=== PATIENT | female | born 1975 | race Caucasian/White ===

== ENCOUNTER → 2018-12-22 09:27 | Outpatient (CLI) | payer OTHER, SELFPAY ==
--- NOTE | 2018-12-22 | DI.US.S_ITS ---
PROCEDURE: US PELVIC COMPLETE INDICATIONS: HISTORY OF PCOS TECHNIQUE: Real-time scanning was performed of the pelvic organs, with image documentation. Additional endovaginal scanning was necessary due to incomplete visualization of the adnexal and endometrial structures by transabdominal scanning. COMPARISON: None. FINDINGS: Transabdominal scanning: Limited scanning through the kidneys shows no hydronephrosis. No pathologic free abdominal or pelvic fluid. Endovaginal scanning: Uterus: Uterus is normal in size at 8.5 x 4.5 x 6.0 cm. The endometrium measures 16 mm in combined thickness. No focal myometrial lesions are evident. No fluid is seen within the endometrium. Small nabothian cysts involving the cervix are present. Ovaries: The right ovary measures 2.5 x 2.3 x 2.0 cm and is normal in size without cystic or solid abnormality. Follicles are present on the right ovary. The left ovary is borderline enlarged and measures 3.5 x 2.2 x 3.6 cm. There is a complex cystic structure identified measuring 2.7 x 2.0 x 2.2 cm with peripheral increased vascularity, which may represent a collapsing or hemorrhagic ovarian cyst. IMPRESSION: 1. Complex left ovarian cyst may represent a hemorrhagic or collapsing ovarian cyst. Followup imaging in 2-3 months is recommended to exclude other etiologies. 2. Unremarkable right ovary and uterus. Dictated by: Morgan Wilson M.D. on 12/22/2018 at 10:40 Approved by: Morgan Wilson M.D. on 12/22/2018 at 10:42
--- NOTE | 2018-12-22 | DI.MG.S_ITS ---
BILATERAL DIGITAL SCREENING MAMMOGRAM 3D/2D WITH CAD: 12/22/2018 CLINICAL: Routine screening. Baseline by default exam. No prior exams were available for comparison. The tissue of both breasts is heterogeneously dense. This may lower the sensitivity of mammography. Current study was also evaluated with a Computer Aided Detection (CAD) system. No significant masses, calcifications, or other findings are seen in either breast. IMPRESSION: NEGATIVE There is no mammographic evidence of malignancy. A 1 year screening mammogram is recommended. This exam was interpreted at Station ID: [id number]. NOTE: For mammograms, a report in lay terms will be sent to the patient. Approximately 15% of breast malignancies will not be visualized mammographically. In the management of a palpable breast mass, a negative mammogram must not discourage biopsy of a clinically suspicious lesion. Electronically Signed By: Sunita coronel/jimenez:12/22/2018 11:55:07 letter sent: Normal Exam ACR BI-RADS Category 1: Negative 3341F
== END ==
PROVIDERS: Visit Provider Family Medicine
DX: Z12.31 Encounter for screening mammogram for malignant neoplasm of breast (principal); N83.292 Other ovarian cyst, left side
CPT/HCPCS: 76830; 76856; 77063; 77067

== ENCOUNTER → 2019-03-18 14:01 | Outpatient (CLI) | payer OTHER, SELFPAY ==
--- NOTE | 2019-03-18 | DI.US.S_ITS ---
PROCEDURE: US PELVIC COMPLETE INDICATIONS: HISTORY OF PCOS TECHNIQUE: Real-time scanning was performed of the pelvic organs, with image documentation. Additional endovaginal scanning was necessary due to incomplete visualization of the adnexal and endometrial structures by transabdominal scanning. COMPARISON: [facility], , US PELVIC COMPLETE, 12/22/2018, 10:09. FINDINGS: Transabdominal scanning: Limited scanning through the kidneys shows no hydronephrosis. No pathologic free abdominal or pelvic fluid. Endovaginal scanning: Uterus: Uterus is normal in size at 10.8 x 4.3 x 5.1 cm. The endometrium measures 11.0 mm in combined thickness. Ovaries: Ovaries normal in size measuring 2.3 x 1.3 x 1.3 cm on the right and 3.1 x 1.4 x 2.0 cm on the left. Complex left ovarian cyst has decreased in size now measuring 1.5 x 1.2 x 1.3 cm. IMPRESSION: Resolving hemorrhagic cyst involving the left ovary. Dictated by: Vinnie HAMMOND Interpreted: Andrez Chahal MD on 03/18/2019 at 15:59 Approved by: Andrez Chahal M.D. on 03/18/2019 at 16:46
== END ==
PROVIDERS: PCP Family Medicine; Visit Provider Family Medicine
DX: N83.202 Unspecified ovarian cyst, left side (principal); Z87.42 Personal history of other diseases of the female genital tract
CPT/HCPCS: 76830; 76856

== ENCOUNTER → 2020-06-06 16:22 | Outpatient (CLI) | payer OTHER, SELFPAY ==
--- NOTE | 2020-06-06 | DI.MG.S_ITS ---
BILATERAL DIGITAL SCREENING MAMMOGRAM 3D/2D WITH CAD: 06/06/2020 CLINICAL: Routine screening. Family history of breast cancer. Comparison is made to exam dated: 12/22/2018 [facility]. The tissue of both breasts is heterogeneously dense. This may lower the sensitivity of mammography. Current study was also evaluated with a Computer Aided Detection (CAD) system. No significant masses, calcifications, or other findings are seen in either breast. There has been no significant interval change. IMPRESSION: NEGATIVE There is no mammographic evidence of malignancy. A 1 year screening mammogram is recommended. This exam was interpreted at Station ID: [id number]. NOTE: For mammograms, a report in lay terms will be sent to the patient. Approximately 15% of breast malignancies will not be visualized mammographically. In the management of a palpable breast mass, a negative mammogram must not discourage biopsy of a clinically suspicious lesion. Electronically Signed By: Juanjose long/jimenez:06/06/2020 16:40:02 letter sent: Normal Exam ACR BI-RADS Category 1: Negative 3341F
== END ==
PROVIDERS: PCP Family Medicine; Referring Provider Family Medicine; Visit Provider Family Medicine
DX: Z12.31 Encounter for screening mammogram for malignant neoplasm of breast (principal); Z80.3 Family history of malignant neoplasm of breast
CPT/HCPCS: 77063; 77067

== ENCOUNTER → 2022-05-16 09:29 | Outpatient (CLI) | payer OTHER, SELFPAY ==
--- NOTE | 2022-05-16 09:30 | DI.MG.S_ITS ---
BILATERAL DIGITAL SCREENING MAMMOGRAM 3D/2D WITH CAD: 05/16/2022 CLINICAL: Routine screening. Family history of breast cancer. Comparison is made to exams dated: 06/06/2020 mammogram and 12/22/2018 mammogram - [facility]. The tissue of both breasts is heterogeneously dense. This may lower the sensitivity of mammography. Current study was also evaluated with a Computer Aided Detection (CAD) system. No significant masses, calcifications, or other findings are seen in either breast. There has been no significant interval change. IMPRESSION: NEGATIVE There is no mammographic evidence of malignancy. A 1 year screening mammogram is recommended. This exam was interpreted at Station ID: [id number]. NOTE: For mammograms, a report in lay terms will be sent to the patient. Approximately 15% of breast malignancies will not be visualized mammographically. In the management of a palpable breast mass, a negative mammogram must not discourage biopsy of a clinically suspicious lesion. Electronically Signed By: Patrick rGove M.D., jr/jimenez:05/16/2022 11:16:02 letter sent: Normal Exam ACR BI-RADS Category 1: Negative 3341F
== END ==
PROVIDERS: PCP Family Medicine; Referring Provider Family Medicine; Visit Provider Family Medicine
DX: Z12.31 Encounter for screening mammogram for malignant neoplasm of breast (principal); Z80.3 Family history of malignant neoplasm of breast
CPT/HCPCS: 77063; 77067

== ENCOUNTER → 2022-06-04 14:52 | Outpatient (CLI) | payer OTHER, SELFPAY ==
--- NOTE | 2022-06-04 14:55 | DI.US.S_ITS ---
PROCEDURE: US PELVIC COMPLETE INDICATIONS: Pelvic and perineal pain TECHNIQUE: Real-time scanning was performed of the pelvic organs, with image documentation. Additional endovaginal scanning was necessary due to incomplete visualization of the adnexal and endometrial structures by transabdominal scanning. COMPARISON: [facility], , US PELVIC COMPLETE, 03/18/2019, 14:09. FINDINGS: Uterus: Uterus is normal in size at 10.5 x 5 x 5.8 cm. The myometrium is homogeneous. The endometrium measures 14 mm combined thickness. Ovaries: The right ovary measures 2.6 x 2.5 x 1.6 cm, with a calculated ovarian volume of 5.4 cc. The left ovary measures 3.3 x 3.6 x 2.9 cm, with a calculated ovarian volume of 17.9 cc. The ovaries have a normal sonographic appearance. Less than 12 follicles can be seen in each ovary. No adnexal masses are seen. Other: No pathologic free abdominal or pelvic fluid. IMPRESSION: Normal pelvic ultrasound, without a cause of pelvic pain identified. We strive to produce accurate, complete, and clear reports of imaging services. To assist us in improving patient care, this report was composed using standard report templates and voice recognition software. Therefore, it may contain abnormal punctuation, insertions and/or omissions. Occasional wrong-word or sound-alike substitutions may occur. Though we review the report and make efforts to correct it, we do recommend that the report be read carefully in proper context to recognize any text inaccuracies. Dictated by: Reed Etienne M.D. on 06/04/2022 at 17:35 Approved by: Reed Etienne M.D. on 06/04/2022 at 17:36
== END ==
PROVIDERS: PCP Family Medicine; Referring Provider Family Medicine; Visit Provider Family Medicine
DX: R10.2 Pelvic and perineal pain (principal)
CPT/HCPCS: 76830; 76856

== ENCOUNTER → 2023-01-26 11:36 | Outpatient (CLI) | payer OTHER, SELFPAY ==
[2023-01-26 20:53] LABS: Cholesterol 129 mg/dL (140-199); HDL Cholesterol 46 mg/dL (40-60); LDL Cholesterol Calculated 70 mg/dL (<100); Triglycerides 63 mg/dL (35-150)
[2023-01-28 02:38] LABS: Labcorp Hemoglobin (Hb) A1c 5.4 % (4.8-5.6)
[2023-02-14 00:22] LABS: Percent Free Testosterone 1.07 % (0.50-2.80); Testosterone Free 0.15 ng/dL (0.10-0.85); Testosterone Total 13.9 ng/dL (.)
== END ==
PROVIDERS: PCP Physician Assistant Medical; Visit Provider Nurse Practitioner Adult Health
DX: E28.2 Polycystic ovarian syndrome (principal)
CPT/HCPCS: 80061; 83036; 84402; 84403

== ENCOUNTER → 2023-08-21 16:19 | Outpatient (CLI) | payer OTHER, SELFPAY ==
--- NOTE | 2023-08-21 16:22 | DI.MRI.S_ITS ---
SCREENING BREAST MRI OF BOTH BREASTS: 08/21/2023 CLINICAL: High risk screening - dense breast tissue. Family history of breast cancer. PROCEDURE: MR BREAST BI WO/W CON INDICATIONS: dense breasts TECHNIQUE: The patient was placed prone in a dedicated breast imaging coil. Precontrast axial STIR and 3D FLASH without fat saturation sequences were obtained. Both before and after bolus injection of contrast, sequential 1-minute axial 3D FLASH with fat saturation sequences for 3 time points, with subtraction images and maximum intensity projections (MIP's) generated. Delayed sagittal FLASH images with fat saturation were also obtained. CONTRAST: 20 cc ProHance IV contrast. Computer-aided detection, including computer algorithm analysis of MRI image data for lesion detection and characterization, pharmacokinetic analysis, with further physician review for interpretation, was performed. COMPARISON: [facility], SCREENING MAMMO BI, 05/16/2022, 9:38. [facility], SCREENING MAMMO BI, 06/06/2020, 16:30. [facility], SCREENING MAMMO BI, 12/22/2018, 10:43. FINDINGS: Image quality: Excellent. There is moderate background parenchymal enhancement. Right breast: 6 o'clock anterior depth enhancing circumscribed mass measuring 1 cm, (17/74 and 6/46). The mass is T2 hyperintense and T1 hypointense. Kinetic analysis demonstrates slow initial phase and persistent delayed phase. This mass is not appreciated on prior tomosynthesis. There is dense breast tissue in this region on prior mammogram. Small T2 hyperintense cysts. Left breast: No mass or suspicious enhancement. Small T2 hyperintense cysts. Miscellaneous: No enlarged lymph nodes. IMPRESSION: INCOMPLETE: NEEDS ADDITIONAL IMAGING EVALUATION 1. Right breast: 6 o'clock anterior depth circumscribed enhancing mass measuring 1 cm is indeterminate. Benign kinetic analysis. Suspect a fibroadenoma. -Recommend a second look with ultrasound. 2. Left breast: No mass or suspicious enhancement. 3. Lymph nodes: No enlarged lymph nodes. BIRADS 0. Recommend a second look right breast ultrasound. COMMENT: The imaging literature indicates that a negative contrast breast MRI examination has a high sensitivity and a moderate specificity for detecting and excluding invasive carcinomas to a detection threshold of 3-5 mm; nonetheless, appropriate clinical and mammographic follow-up are recommended. MRI is not sensitive for detecting DCIS (ductal carcinoma in situ) and may not detect large invasive neoplasms that show only minimal enhancement such as mucinous carcinoma. If there are suspicious calcifications or clinically worrisome palpable masses, then biopsy should still be considered. Invasive neoplasms can be hidden by co-existent and benign enhancement caused by mastitis, hormone therapy effects, radiation therapy, , and recent biopsy or surgery. False positive examinations can occur in a number of circumstances, including breasts that have recently been subject to invasive procedures and those that contain atypical ductal hyperplasia, hormonally stimulated glandular tissue, fat necrosis, or radial scars. Dictated by: Jimmie Brennan M.D. on 08/24/2023 at 14:42 This exam was interpreted at Station ID: [id number]. Electronically Signed By: Jimmie Brennan M.D. slc/:08/24/2023 15:11:50 letter sent: Need Ultrasound ACR BI-RADS Category 0: Incomplete 3340F
== END ==
PROVIDERS: PCP Physician Assistant Medical; Referring Provider Family Medicine; Visit Provider Family Medicine
DX: R92.30 Dense breasts, unspecified (principal); Z80.3 Family history of malignant neoplasm of breast; N60.02 Solitary cyst of left breast; N63.13 Unspecified lump in the right breast, lower outer quadrant
CPT/HCPCS: 77049; A9579

== ENCOUNTER → 2023-09-25 14:50 | Outpatient (CLI) | payer OTHER, SELFPAY ==
--- NOTE | 2023-09-25 | DI.US.S_ITS ---
LIMITED ULTRASOUND OF RIGHT BREAST: 09/25/2023 CLINICAL: Patient returns for additional imaging over a suspected mass in the right breast. Comparison is made to exams dated: 08/21/2023 breast MRI, 05/16/2022 mammogram, 06/06/2020 mammogram, and 12/22/2018 mammogram - [facility]. Color flow and real-time ultrasound of the right breast 6 o'clock region were performed. Yates scale images of the real-time examination were reviewed. No significant abnormalities were seen sonographically in the right breast. IMPRESSION: PROBABLY BENIGN No ultrasound correlate for the circumscribed mass seen on MRI. A follow-up breast MRI in 6 months is recommended to demonstrate stability. Exam findings were conveyed to the patient. This exam was interpreted at Station ID: [id number]. Electronically Signed By: Jimmie Brennan M.D. slc/:09/25/2023 15:53:44 letter sent: Followup Recommended Ultrasound BI-RADS: 3 Probably benign
== END ==
PROVIDERS: PCP Family Medicine; Referring Provider Family Medicine; Visit Provider Family Medicine
DX: R92.8 Other abnormal and inconclusive findings on diagnostic imaging of breast (principal)
CPT/HCPCS: 76642

== ENCOUNTER → 2024-05-27 16:24 | Outpatient (CLI) | payer OTHER, SELFPAY ==
--- NOTE | 2024-05-27 16:25 | DI.MRI.S_ITS ---
BREAST MRI OF BOTH BREASTS: 05/27/2024 CLINICAL: Abnormal Findings om Diagnostic Mammogram. Increased Right breast pain. TECHNIQUE: The patient was placed prone in a dedicated breast imaging coil. Precontrast axial STIR and 3D FLASH without fat saturation sequences were obtained. Both before and after bolus injection of contrast, sequential 1-minute axial 3D FLASH with fat saturation sequences for 3 time points, with subtraction images and maximum intensity projections (MIP's) generated. Delayed sagittal FLASH images with fat saturation were also obtained. 20 cc ProHance IV contrast. Computer-aided detection, including computer algorithm analysis of MRI image data for lesion detection and characterization, pharmacokinetic analysis, with further physician review for interpretation, was performed. COMPARISON: [facility], , MM SCREENING MAMMO BI, 05/16/2022, 9:38. [facility], US, US BREAST RT LIMITED, 09/25/2023, 15:10. [facility], MR, MR BREAST BI WO/W CON, 08/21/2023, 17:07. FINDINGS: Image quality: Excellent. There is moderate bilateral background parenchymal enhancement. Right breast: In the 4 o'clock position of the right breast at a mid to posterior depth, there is a 1.8 x 1.0 by 1.0 cm area of clumped enhancement. Kinetic analysis demonstrates mixed rapid and medium initial phase enhancement, with persistent enhancement in the delayed phase. This area was present, similar size, though the enhancement was much less pronounced on the previous exam. Again seen is an ovoid enhancing mass in the 06:00 o'clock anterior right breast, stable size measuring 1.2 cm and demonstrating nearly identical enhancement kinetics. There are no suspicious masses or new non masslike enhancement. Left breast: No suspicious mass or non masslike enhancement. Miscellaneous: No axillary or internal mammary chain adenopathy. The visible portions of the chest wall, liver, heart, and lungs appear normal. IMPRESSION: PROBABLY BENIGN There are two areas of focal enhancement in the right breast, both are stable in size and demonstrate benign enhancement kinetics, one in the 4 o'clock position is more prominent on the current exam. Previous second-look ultrasound for the 06:00 o'clock lesion was unsuccessful. These findings are most likely benign. No suspicious adenopathy. A follow-up breast MRI in six months to demonstrate stability is recommended. BIRADS three, probably benign COMMENT: The imaging literature indicates that a negative contrast breast MRI examination has a high sensitivity and a moderate specificity for detecting and excluding invasive carcinomas to a detection threshold of 3-5 mm; nonetheless, appropriate clinical and mammographic follow-up are recommended. MRI is not sensitive for detecting DCIS (ductal carcinoma in situ) and may not detect large invasive neoplasms that show only minimal enhancement such as mucinous carcinoma. If there are suspicious calcifications or clinically worrisome palpable masses, then biopsy should still be considered. Invasive neoplasms can be hidden by co-existent and benign enhancement caused by mastitis, hormone therapy effects, radiation therapy, , and recent biopsy or surgery. False positive examinations can occur in a number of circumstances, including breasts that have recently been subject to invasive procedures and those that contain atypical ductal hyperplasia, hormonally stimulated glandular tissue, fat necrosis, or radial scars. This exam was interpreted at Station ID: [id number]. Electronically Signed By: Sunita coronel/:05/31/2024 16:32:57 letter sent: Followup Recommended ACR BI-RADS Category 3: Probably benign 3343F
== END ==
PROVIDERS: PCP Family Medicine; Referring Provider Family Medicine; Visit Provider Family Medicine
DX: R92.8 Other abnormal and inconclusive findings on diagnostic imaging of breast (principal); N64.89 Other specified disorders of breast; N63.15 Unspecified lump in the right breast, overlapping quadrants
CPT/HCPCS: 77049; A9579

== ENCOUNTER → 2024-12-09 | Outpatient (CLI) | payer OTHER, SELFPAY ==
--- NOTE | 2024-12-09 17:03 | DI.MRI.S_ITS ---
PROCEDURE: MR BREAST BI WO/W CON INDICATIONS: BRCA positive referred for high risk screening. TECHNIQUE: The patient was placed prone in a dedicated breast imaging coil. Precontrast axial STIR and 3D FLASH without fat saturation sequences were obtained. Both before and after bolus injection of contrast, sequential 1-minute axial 3D FLASH with fat saturation sequences for 3 time points, with subtraction images and maximum intensity projections (MIP's) generated. Delayed sagittal FLASH images with fat saturation were also obtained. Computer-aided detection, including computer algorithm analysis of MRI image data for lesion detection and characterization, pharmacokinetic analysis, with further physician review for interpretation, was performed. COMPARISON: [facility], MR, MR BREAST BI WO/W CON, 05/27/2024, 16:52., breast MRI 08/21/2023, right breast ultrasound 09/25/2023 FINDINGS: Image quality: Diagnostic. There is heterogeneous amount of fibroglandular tissue. There is moderate and symmetric background parenchymal enhancement. Right breast: There is redemonstration of enhancing oval circumscribed mass at 6 o'clock. anterior depth measuring 1.3 cm (), not significantly changed since prior MRI 08/21/2023. Finding demonstrates T2 hyperintensity and benign kinetic enhancement suggestive of a fibroadenoma. No prior ultrasound correlate identified. At 12 o'clock anterior depth, 1.8 cm from the nipple, there is an enhancing oval mass with circumscribed margin measuring 0.5 x 0.7 x 0.8 cm (AP by ML by SI, , ). This mass is new since prior MRI 08/21/2023 and has mildly increased in size since prior MRI 05/27/2024 when it measured 0.3 x 0.3 x 0.5 cm (, ). Finding demonstrates benign pattern of kinetic enhancement. There is no other area of suspicious enhancement or lymphadenopathy. Left breast: There is no suspicious enhancement or lymphadenopathy. 1)Right breast 0.8 cm oval circumscribed mass at 12 o'clock anterior depth. Recommend MRI directed ultrasound for further evaluation. Patient is also due for mammogram (last mammogram performed on 05/16/2022). 2)Right breast 1.3 cm oval circumscribed mass at 6:00 a.m. Anterior depth demonstrating intrinsic T2 hyperintensity in benign kinetic enhancement, stable since August 2023. Finding resembles a fibroadenoma and is probably benign. Recommend further evaluation second-look ultrasound to find correlate. Approved by: Erika Goddard M.D.,Ph.D. on 12/15/2024 at 1:21
== END ==
LOC: MRI 17:02
PROVIDERS: PCP Family Medicine; Referring Provider Family Medicine; Visit Provider Family Medicine
DX: N63.15 Unspecified lump in the right breast, overlapping quadrants (principal); Z15.01 Genetic susceptibility to malignant neoplasm of breast; Z15.09 Genetic susceptibility to other malignant neoplasm; Z12.39 Encounter for other screening for malignant neoplasm of breast
CPT/HCPCS: 77049; A9579

== ENCOUNTER → 2025-10-06 15:20 | Outpatient (CLI) | payer OTHER, SELFPAY ==
--- NOTE | 2025-10-06 15:21 | DI.US.S_ITS ---
PROCEDURE: US PELVIC COMPLETE INDICATIONS: Genetic susceptibility to other disease TECHNIQUE: Real-time scanning was performed of the pelvic organs, with image documentation. Additional endovaginal scanning was necessary due to incomplete visualization of the adnexal and endometrial structures by transabdominal scanning. COMPARISON: [facility], US, US PELVIC COMPLETE, 06/04/2022, 16:25. FINDINGS: Uterus: Uterus is anteverted and normal in size at 8.8 x 4.0 x 5.0 cm. The myometrium is homogeneous. The endometrium measures 10 mm combined thickness. Ovaries: The right ovary measures 2.1 x 1.3 x 1.6 cm, with a calculated ovarian volume of 3.0 cc. The left ovary measures 2.7 x 1.3 x 1.2 cm, with a calculated ovarian volume of 2.8 cc. The ovaries have a normal sonographic appearance. Less than 12 follicles can be seen in each ovary. No adnexal masses are seen. Other: No pathologic free abdominal or pelvic fluid. IMPRESSION: Normal appearance of the uterus and ovaries. We strive to produce accurate, complete, and clear reports of imaging services. To assist us in improving patient care, this report was composed using standard report templates and voice recognition software. Therefore, it may contain abnormal punctuation, insertions and/or omissions. Occasional wrong-word or sound-alike substitutions may occur. Though we review the report and make efforts to correct it, we do recommend that the report be read carefully in proper context to recognize any text inaccuracies. Dictated by: Sundeep Murray M.D. on 10/06/2025 at 16:28 Approved by: Sundeep Murray M.D. on 10/06/2025 at 16:29
== END ==
LOC: US 15:21
PROVIDERS: PCP Family Medicine; Referring Provider Family Medicine; Visit Provider Family Medicine
DX: Z15.01 Genetic susceptibility to malignant neoplasm of breast (principal); Z15.068 Genetic susceptibility to other malignant neoplasm of digestive system; Z15.07 Genetic susceptibility to malignant neoplasm of urinary tract; Z15.09 Genetic susceptibility to other malignant neoplasm; Z15.89 Genetic susceptibility to other disease
CPT/HCPCS: 76830; 76856